=== PATIENT | female | born 1990 | race Caucasian/White ===

== ENCOUNTER 2018-07-30 21:02 | Emergency (ER) | payer SELFPAY ==
[~2018-07-30] VITALS: Ht 154.9 cm; Wt 61.2 kg
[2018-07-30 23:10] VITALS: BP 122/76
[2018-07-30] MEDS ORDERED: Haloperidol 5mg/ml Inj IM ONE (23:15)
[2018-07-30] MEDS ORDERED: DiphenhydrAMINE 50mg/ml Inj IM ONE (23:15)
[2018-07-30] MEDS ORDERED: LORazepam Inj 2mg/ml 1ml IM ONE (23:15)
[2018-07-30 23:25] VITALS: BP_SYST 111; BP_SYST 122; BP_DIAS 75; BP_DIAS 76
[2018-07-30 23:40] VITALS: BP_SYST 115; BP_SYST 122; BP_DIAS 76
[2018-07-30 23:55] VITALS: BP 122/76
[2018-07-31] VITALS (21 sets, daily range): BP systolic 100–124; BP diastolic 60–86
--- NOTE | 2018-07-31 05:00 | Emergency Room Report ---
History of Present Illness General Chief Complaint: Behavioral Complaint Source: Patient Present Illness HPI Patient's 27-year-old female presented after increased agitation. The patient was placed on a 5150 hold by [employer]. The patient was reportedly the throwing and breaking things at her residence. The patient's boyfriend is worried about possible suicide attempt. The patient reportedly had kicked her boyfriend and upon being restrained stated to the officers "kill me" "shoot me" and "I want to ". The patient states that she had broken up with her boyfriend and had attempted to get him to leave the apartment. Allergies: Coded Allergies: No Known Allergies (Unverified , 07/30/18) Patient History Past Medical History: see triage record Last Menstrual Period: n/a Now: No Reviewed Nursing Documentation: PMH: Agreed; PSxH: Agreed Nursing Documentation-PMH Past Medical History: No History, Except For Review of Systems All Other Systems: limited - by poor cooperation Physical Exam Vital Signs Date Time Temp Pulse Resp B/P (MAP) Pulse Ox O2 Delivery O2 Flow Rate FiO2 07/30/18 21:27 98.2 105 18 122/76 97 Room Air Sp02 EP Interpretation: reviewed, normal General Appearance: alert/responsive, no apparent distress, GCS 15, non-toxic Head: normocephalic, atraumatic Eyes: normal eye exam, PERRL, lids + conjunctiva normal ENT: hearing intact, no angioedema Neck: supple/symm/no masses, no meningismus Respiratory: effort normal, no wheezing, chest symmetrical Cardiovascular: regular rate, rhythm, no edema Cardiovascular #2: 2+ carotid (R), 2+ carotid (L), 2+ dorsalis pedis (R), 2+ dorsalis pedis (L) Gastrointestinal: non-tender, no mass, non-distended, no rebound/guarding, normal bowel sounds Musculoskeletal: gait & station normal, strength & tone normal, normal ROM, non -tender Neurologic: oriented x3, sensory intact, normal speech Psychiatric: other - flat affect, labile Skin: no rash, well hydrated Lymphatic: normal inspection Medical Decision Making Restraint Attestation I, Dinesh Blue MD, have personally evaluated this patient. Laboratory tests have been reviewed and addressed accordingly. The patient is deemed to present a danger to themselves and/or others. This is based on the exam, history ( provided by patient, EMS/[employer] and/or family) and observed or reported behavior. Attempts for non-invasive measures have been considered and/or attempted, however, have been futile. It is in the best interest of the nursing staff, the patient, and others involved in this patient's care that behavioral restraints be applied. Patient evaluation reveals the following: The patient we markedly agitated and poorly cooperative eloped from the emergency department and was immediately brought back by security. The patient was subsequently screaming Diagnostic Impression: Primary Impression: Psychosis ER Course Patient presented for agitation. Differential diagnoses include substance abuse, psychosis, bipolar disorder, depression, malingering Because of complexity of patient's case laboratory testing was ordered. The patient was noted to be placed on 5150 hold. The patient given IM medications for sedation due to marked agitation she is placed in restraints.The patient restraints subsequently discontinued after she was more calm. Last Vital Signs Date Time Temp Pulse Resp B/P (MAP) Pulse Ox O2 Delivery O2 Flow Rate FiO2 07/30/18 23:55 105 18 97 Room Air 07/30/18 21:27 98.2 122/76 Status: unchanged Disposition: XFER TO PSYCH HOSP/UNIT Condition: Stable Referrals: NOT APPLICABLE THIS PATIENT,RE (PCP) Dinesh Blue MD Jul 31, 2018 05:00
[2018-07-31 07:04] LABS: ANION GAP 8 mmol/L (5-15); BLOOD UREA NITROGEN 11 mg/dL (7-18); CALCIUM 8.3 MG/DL (8.5-10.1); CARBON DIOXIDE 25 MMOL/L (21-32); CHLORIDE 106 MMOL/L (98-107); CREATININE 0.7 MG/DL (0.55-1.30); POTASSIUM 3.5 MMOL/L (3.5-5.1); SODIUM 138 MMOL/L (136-145)
[2018-07-31 07:08] LABS: ALANINE AMINOTRANSFERASE 16 U/L (12-78); ALBUMIN 3.2 G/DL (3.4-5.0); ALBUMIN/GLOBULIN RATIO 0.9 (1.0-2.7); ALKALINE PHOSPHATASE 61 U/L (46-116); ASPARTATE AMINO TRANSFERASE 36 U/L (15-37); BILIRUBIN,TOTAL 0.4 MG/DL (0.2-1.0)
[2018-07-31 07:16] LABS: BASOPHILS % (AUTO) 1.4 % (0.0-2.0); EOSINOPHILS % (AUTO) 3.9 % (0.0-3.0); HEMATOCRIT 37.4 % (37.0-47.0); HEMOGLOBIN 13.1 G/DL (12.0-16.0); LYMPHOCYTES % (AUTO) 29.7 % (20.0-45.0); MEAN CORPUSCULAR VOLUME 92 FL (80-99); MONOCYTES % (AUTO) 6.5 % (1.0-10.0); NEUTROPHILS % (AUTO) 58.6 % (45.0-75.0); PLATELET COUNT 268 K/UL (150-450); RED BLOOD COUNT 4.07 M/UL (4.20-5.40); RED CELL DISTRIBUTION WIDTH 10.4 % (11.6-14.8); WHITE BLOOD COUNT 10.6 K/UL (4.8-10.8)
[2018-07-31] MEDS ORDERED: UNOBMED (07:59)
== END 2018-07-31 13:00 ==
LOC: EDBD 21:02 → EMR 23:57
DX: R45.1 Restlessness and agitation (principal); F23 Brief psychotic disorder
CPT/HCPCS: 36415; 80053; 80307; 81025; 84703; 85025; 96372; 99283; G0480; J1200; J1630; 80329